=== PATIENT | male | born 1970 | race Caucasian/White ===

== ENCOUNTER 2017-01-20 09:37 | Emergency (ER) | payer OTHER ==
--- NOTE | 2017-01-20 10:15 | DIAGNOSTIC IMAGING REPORT ---
PROCEDURE: XR FINGER - LEFT (fourth finger). INDICATION: TRAUMA/INJURY TECHNIQUE: There are a views. COMPARISON: None. FINDINGS: There is a soft tissue avulsion injury of the distal aspect of the left fourth finger. Osseous structures and joint spaces are normal. No evidence of fracture. IMPRESSION: 1. Soft tissue avulsion type injury of left fourth finger. 2. No evidence of fracture.
--- NOTE | 2017-01-20 11:52 | ED ORDER SUMMARY ---
..... Patient: VIRA AYALA JR OrderSheet [facility] VisitID: [id number] [address] [place] [address] 46y, M Registration Date/Time: 01/20/2017 ORDER SHEET Weight: 101.6 kg (stated) Allergies: No Known Drug Allergy GENERAL ORDERS: Finger Left (ring) Urgent (09:50 01/20/2017 [facility]) (9:54 KWilliams R.N.) Call (Place call to): (Dr Kent) (10:25 01/20/2017 [facility]) (Ack 10:41 LTapper) (11:15 MWinterer R.N.) MEDICATION ORDERS: Tdap IM 0.5 mL (NOW, per protocol) (09:53 01/20/2017 KWilliams R.N. per protocol) (9:54 KWilliams R.N.) Clindamycin PO 300 mg (NOW) (10:26 01/20/2017 [facility]) (Ack 10:33 MWinterer R.N.) (10:37 MWinterer R.N.) Zofran ODT PO 4 mg (NOW) (10:26 01/20/2017 [facility]) (Ack 10:33 MWinterer R.N.) (10:37 MWinterer R.N.) IV FLUIDS: ORDER SHEET NOTES: [Electronically signed by Jia Pat R.N. (12:08 01/20/2017)] [Electronically signed by Noam Randall DO (22:56 01/20/2017)] [Electronically locked/signed by Jia Pat R.N. (12:08 01/20/2017)]
--- NOTE | 2017-01-20 11:52 | ED NURSING NOTES ---
Clinical Report - Nurses [facility] [place] [address] [place] [address] 01/20/2017 9:40 Patient: VIRA AYALA JR TRIAGE Acuity: LEVEL 3. Chief Complaint: INJURY TO LEFT HAND. INJURY TO THE LEFT RING FINGER. Alert. No acute distress. SEPSIS SCREEN: Sepsis Screen. Negative (no infection suspected/documented). [place] COMA SCORE: [place] Coma Scale: 15- eyes open spontaneously (4); best verbal response- oriented x 4 (5); best motor response- obeys commands (6). --09:47 Jia Pat R.N. 09:44 01/20/17. BP: 146/84. HR: 18. RR: 100. O2 saturation: 98% on room air. Temp: 98.7 F (oral). Pain level now: 07/05. --09:47 Jia Pat R.N. Weight: 101.6 kg stated. Height/Length: 71 inches Per Patient. BMI: 31.3. --09:45 Jia Pat R.N. Medications None. --09:45 Jia Pat R.N. Medication/allergy information source: the patient. --09:47 Jia Pat R.N. Allergies No Known Drug Allergy. --09:45 Jia Pat R.N. History Arrived by private vehicle. Historian: patient. Accompanied by spouse. Primary physician (none). This occurred just prior to arrival. Mechanism of injury: a single blow. ( Pt reports a car aternator fell on his finger..). 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 PAST MEDICAL HX: Tetanus status: unknown. SOCIAL HX: Never smoker. Occasional alcohol use. No drug use. FALL RISK ASSESSMENT: Fall risk assessment completed. No fall risk identified. NUTRITIONAL RISK ASSESSMENT: The nutritional risk assessment revealed no deficiencies. FUNCTIONAL ASSESSMENT: Functional assessment: no impairments noted. LEARNING NEEDS ASSESSMENT: The learning needs assessment revealed no barriers. SKIN INTEGRITY ASSESSMENT: Skin integrity risk assessment completed. No skin integrity risk identified. --09:47 Jia Pat R.N. ADDITIONAL SURGERIES: Hernia Repair. Knee Surgery. --09:45 Jia Pat R.N. Interventions ID band on patient. To treatment room. --09:47 Jia Pat R.N. PHYSICAL ASSESSMENT 09:50 01/20/17. Ambulatory to room. GENERAL / NEURO / PSYCH: Oriented X 4. Alert. Appears in no acute distress. EXTREMITIES: Neuro-vascular status intact to the extremity. Tip of left ring finger: partially avulsed nail; tip amputation (partial thickness); partial loss of the nail bed. SKIN: Skin is warm and dry. --09:50 Jia Pat R.N. NURSING PROGRESS NOTES 09:49 01/20/2017 TDAP IM 0.5 mL given. (Lot#: [id number], expiration date: 09/02/2018, Lightout Examiner: sanofi pasteur). Given in the right deltoid. Allergies verified and confirmed 5 rights. Vaccine information statement provided to the patient's family. --09:54 Mienrva Sanchez R.N. 09:50 01/20/17. Two patient identifiers checked. Patient ready for evaluation- chart flagged and ED physician notified. --09:50 Jia Pat R.N. 10:37 01/20/2017 Clindamycin PO 300 mg given. Allergies verified and confirmed 5 rights. --10:37 Jia Pat R.N. 10:37 01/20/2017 Zofran ODT (Ondansetron) PO 4 mg given. Allergies verified and confirmed 5 rights. --10:37 Jia Pat R.N. DISPOSITION / DISCHARGE Departure time: 12:00 Jan 20 2017. Condition at departure: improved and stable. No learning barriers present. Discharge instructions provided and reviewed with the patient and spouse. Reviewed wound care instructions. Reviewed referral to an orthopedic surgeon. Patient and spouse verbalized understanding. Written instructions provided in Uzbek. The patient was discharged by the physician. He was discharged home and accompanied by spouse. He left the Emergency Department ambulatory and via private vehicle. Spouse driving. --12:07 Jia Pat R.N. 12:05 01/20/17. BP: 134/80. HR: 79. RR: 18. O2 saturation: 97% on room air. Temp: 97.8 F (oral). --12:07 Jia Pat R.N. Locked/Released at 01/20/2017 12:08 by Jia Pat R.N.
--- NOTE | 2017-01-20 11:52 | ED CLINICAL REPORT ---
Clinical Report - Physicians/Mid Levels [facility] [address] [place] [address] 01/20/2017 9:40 Patient: VIRA AYALA JR Time Seen: 09:43. Arrived- By private vehicle. Historian- patient. Note: (sent from [facility] for evaluation). HISTORY OF PRESENT ILLNESS Chief Complaint: Injury to the left ring finger. The injury happened today about 2 hours ago. Occurred at home. The patient sustained a crush injury- dropped heavy object on hand. Patient is experiencing moderate pain. Patient denies injury to the head or neck. No other injury. REVIEW OF SYSTEMS The patient sustained a laceration. He has had swelling. No tingling, numbness, weakness or foreign body. PAST HISTORY Negative. See nurses notes. No history of heart disease, lung disease or renal disease. The patient's dominant hand is the right. Tetanus immunization status is unknown. Problems: no known problems. Surgeries: Hernia repair. Knee surgery. Medications: None. Allergies: No Known Drug Allergy. SOCIAL HISTORY Never smoker. Occasional alcohol use. No drug use. Is a local resident. ADDITIONAL NOTES The nursing notes have been reviewed. PHYSICAL EXAM Vital Signs: 01/20/2017 09:44 BP: 146/84. HR: 18. RR: 100. O2 saturation: 98%. Temp: 98.7 F. Pain level now: 8/10. Appearance: Alert. Oriented X3. Anxious. Patient in moderate distress. Head: Head atraumatic. Eyes: Pupils equal, round and reactive to light. Eyes normal inspection. No scleral icterus or pale conjunctivae. Neck: Normal inspection. Neck supple. C-spine non-tender. CVS: Normal heart rate and rhythm. Heart sounds normal. Pulses normal. Respiratory: No respiratory distress. Breath sounds normal. Abdomen: No visible injury. Back: No tenderness. Normal inspection. Skin: (left index finger nail bed laceration). Extremities: Tip of left ring finger: severe tenderness, moderate swelling and subcutaneous 1.0 cm laceration, which involves the nail bed; nail completely avulsed; partial thickness tip amputation present; exposed bone with a visible fracture; partial loss of the nail bed. SEE LACERATION PROCEDURE NOTE #1. No foreign body. No wrist injury. Extremities otherwise negative. Neuro, Vascular and Tendons: Vascular status intact. Sensation intact. Motor intact. Tendon function intact. Neuro: Oriented X 3. No motor deficit. No sensory deficit. LABS, X-RAYS, AND EKG Lt UE Digits X-ray: No fracture. Normal alignment. Soft tissue swelling. Views: AP, lateral and oblique. Technique: good. The X-rays were interpreted contemporaneously by me. Pulse Oximetry: 01/20/2017 09:44 O2 saturation: 98%. (FIO2 - room air). Interpretation: normal. PROGRESS AND PROCEDURES Digital Nerve Block - Finger: Digital nerve block performed on the left ring finger. Web space approach utilized. Landmarks identified. Skin prepped. Total volume of 5 mL 0.5% Marcaine infiltrated via multiple punctures using a 25-gauge needle. Patient cooperative during procedure. No complications encountered. Good anesthesia achieved. Course of Care: Tdap Vaccine 0.5 mL IM given. Zofran 4 mg ODT PO given. Clindamycin 300 mg PO given. Small amount of distal tuft exposed and cannot fold surrounding tissues over this area. Dr. Kent consulted for partial removal of distal tuft to facilitate closure of site. Discussed case with on-call health care provider, (oDnte call placed 10:30 call returned 10:50). Reviewed test results. Agreed upon treatment plan. Health care provider will see patient in ED. Patient/family counseled. Disposition: Discharged. Condition: stable and improved. CLINICAL IMPRESSION Crush injury to the left ring finger. 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 INSTRUCTIONS Apply ice. Elevate affected areas above chest level. Protect wound and keep wound area clean. Change dressing daily. Keep wounds dry. Apply neosporin twice daily. Rest. Do not work with left hand until released. Warnings: COMPLICATIONS: Complications from this condition include: infection. Future problems may include scarring. INFECTION: Watch for signs of infection (increasing heat and redness, pus-like drainage, swelling, or increased pain). Return or see your doctor if these signs occur. SEDATIVE MEDICATION: You were given sedative medication during your visit. Do not drive or operate dangerous machinery. TETANUS: You were given a tetanus shot during your visit. Make a note for future reference. CONTROLLED SUBSTANCE WARNINGS. GENERAL WARNINGS: Return or contact your physician immediately if your condition worsens or changes unexpectedly, if not improving as expected, or if other problems arise. Prescription Medications: Hydrocodone/APAP 5mg/325mg: take 1 to 2 orally every 6 hours as needed for pain. Dispense fifteen (15). No refills. Ibuprofen 600mg tablets: take 1 tablet orally every 8 hours as needed for pain. Dispense thirty (30). No refills. Clindamycin 300 mg: take 1 capsule orally every 6 hours for 3 days. No refill. OTC Medications: Acetaminophen (available over the counter): take according to label instructions. Follow-up: Follow up with an orthopedic surgeon Please go to the orthopedic clinic as directed on sunday . (Electronically signed by Noam Randall DO 01/20/2017 22:56)
--- NOTE | 2017-01-20 11:52 | ED ORDER SUMMARY ---
..... Patient: VIRA AYALA JR OrderSheet [facility] VisitID: [id number] [address] [place] [address] 46y, M Registration Date/Time: 01/20/2017 ORDER SHEET Weight: 101.6 kg (stated) Allergies: No Known Drug Allergy GENERAL ORDERS: Finger Left (ring) Urgent (09:50 01/20/2017 [facility]) (9:54 KWilliams R.N.) Call (Place call to): (Dr Kent) (10:25 01/20/2017 [facility]) (Ack 10:41 LTapper) (11:15 MWinterer R.N.) MEDICATION ORDERS: Tdap IM 0.5 mL (NOW, per protocol) (09:53 01/20/2017 KWilliams R.N. per protocol) (9:54 KWilliams R.N.) Clindamycin PO 300 mg (NOW) (10:26 01/20/2017 [facility]) (Ack 10:33 MWinterer R.N.) (10:37 MWinterer R.N.) Zofran ODT PO 4 mg (NOW) (10:26 01/20/2017 [facility]) (Ack 10:33 MWinterer R.N.) (10:37 MWinterer R.N.) IV FLUIDS: ORDER SHEET NOTES: [Electronically signed by Jia Pat R.N. (12:08 01/20/2017)] [Electronically signed by Noam Randall DO (22:56 01/20/2017)] [Electronically locked/signed by Jia Pat R.N. (12:08 01/20/2017)]
--- NOTE | 2017-01-20 11:52 | ED CLINICAL REPORT ---
Clinical Report - Physicians/Mid Levels [facility] [address] [place] [address] 01/20/2017 9:40 Patient: VIRA AYALA JR Time Seen: 09:43. Arrived- By private vehicle. Historian- patient. Note: (sent from [facility] for evaluation). HISTORY OF PRESENT ILLNESS Chief Complaint: Injury to the left ring finger. The injury happened today about 2 hours ago. Occurred at home. The patient sustained a crush injury- dropped heavy object on hand. Patient is experiencing moderate pain. Patient denies injury to the head or neck. No other injury. REVIEW OF SYSTEMS The patient sustained a laceration. He has had swelling. No tingling, numbness, weakness or foreign body. PAST HISTORY Negative. See nurses notes. No history of heart disease, lung disease or renal disease. The patient's dominant hand is the right. Tetanus immunization status is unknown. Problems: no known problems. Surgeries: Hernia repair. Knee surgery. Medications: None. Allergies: No Known Drug Allergy. SOCIAL HISTORY Never smoker. Occasional alcohol use. No drug use. Is a local resident. ADDITIONAL NOTES The nursing notes have been reviewed. PHYSICAL EXAM Vital Signs: 01/20/2017 09:44 BP: 146/84. HR: 18. RR: 100. O2 saturation: 98%. Temp: 98.7 F. Pain level now: 8/10. Appearance: Alert. Oriented X3. Anxious. Patient in moderate distress. Head: Head atraumatic. Eyes: Pupils equal, round and reactive to light. Eyes normal inspection. No scleral icterus or pale conjunctivae. Neck: Normal inspection. Neck supple. C-spine non-tender. CVS: Normal heart rate and rhythm. Heart sounds normal. Pulses normal. Respiratory: No respiratory distress. Breath sounds normal. Abdomen: No visible injury. Back: No tenderness. Normal inspection. Skin: (left index finger nail bed laceration). Extremities: Tip of left ring finger: severe tenderness, moderate swelling and subcutaneous 1.0 cm laceration, which involves the nail bed; nail completely avulsed; partial thickness tip amputation present; exposed bone with a visible fracture; partial loss of the nail bed. SEE LACERATION PROCEDURE NOTE #1. No foreign body. No wrist injury. Extremities otherwise negative. Neuro, Vascular and Tendons: Vascular status intact. Sensation intact. Motor intact. Tendon function intact. Neuro: Oriented X 3. No motor deficit. No sensory deficit. LABS, X-RAYS, AND EKG Lt UE Digits X-ray: No fracture. Normal alignment. Soft tissue swelling. Views: AP, lateral and oblique. Technique: good. The X-rays were interpreted contemporaneously by me. Pulse Oximetry: 01/20/2017 09:44 O2 saturation: 98%. (FIO2 - room air). Interpretation: normal. PROGRESS AND PROCEDURES Digital Nerve Block - Finger: Digital nerve block performed on the left ring finger. Web space approach utilized. Landmarks identified. Skin prepped. Total volume of 5 mL 0.5% Marcaine infiltrated via multiple punctures using a 25-gauge needle. Patient cooperative during procedure. No complications encountered. Good anesthesia achieved. Course of Care: Tdap Vaccine 0.5 mL IM given. Zofran 4 mg ODT PO given. Clindamycin 300 mg PO given. Small amount of distal tuft exposed and cannot fold surrounding tissues over this area. Dr. Kent consulted for partial removal of distal tuft to facilitate closure of site. Discussed case with on-call health care provider, (Donte call placed 10:30 call returned 10:50). Reviewed test results. Agreed upon treatment plan. Health care provider will see patient in ED. Patient/family counseled. Disposition: Discharged. Condition: stable and improved. CLINICAL IMPRESSION Crush injury to the left ring finger. 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 INSTRUCTIONS Apply ice. Elevate affected areas above chest level. Protect wound and keep wound area clean. Change dressing daily. Keep wounds dry. Apply neosporin twice daily. Rest. Do not work with left hand until released. Warnings: COMPLICATIONS: Complications from this condition include: infection. Future problems may include scarring. INFECTION: Watch for signs of infection (increasing heat and redness, pus-like drainage, swelling, or increased pain). Return or see your doctor if these signs occur. SEDATIVE MEDICATION: You were given sedative medication during your visit. Do not drive or operate dangerous machinery. TETANUS: You were given a tetanus shot during your visit. Make a note for future reference. CONTROLLED SUBSTANCE WARNINGS. GENERAL WARNINGS: Return or contact your physician immediately if your condition worsens or changes unexpectedly, if not improving as expected, or if other problems arise. Prescription Medications: Hydrocodone/APAP 5mg/325mg: take 1 to 2 orally every 6 hours as needed for pain. Dispense fifteen (15). No refills. Ibuprofen 600mg tablets: take 1 tablet orally every 8 hours as needed for pain. Dispense thirty (30). No refills. Clindamycin 300 mg: take 1 capsule orally every 6 hours for 3 days. No refill. OTC Medications: Acetaminophen (available over the counter): take according to label instructions. Follow-up: Follow up with an orthopedic surgeon Please go to the orthopedic clinic as directed on sunday . (Electronically signed by Noam Randall DO 01/20/2017 22:56)
--- NOTE | 2017-01-20 11:52 | ED NURSING NOTES ---
Clinical Report - Nurses [facility] [place] [address] [place] [address] 01/20/2017 9:40 Patient: VIRA AYALA JR TRIAGE Acuity: LEVEL 3. Chief Complaint: INJURY TO LEFT HAND. INJURY TO THE LEFT RING FINGER. Alert. No acute distress. SEPSIS SCREEN: Sepsis Screen. Negative (no infection suspected/documented). [place] COMA SCORE: [place] Coma Scale: 15- eyes open spontaneously (4); best verbal response- oriented x 4 (5); best motor response- obeys commands (6). --09:47 Jia Pat R.N. 09:44 01/20/17. BP: 146/84. HR: 18. RR: 100. O2 saturation: 98% on room air. Temp: 98.7 F (oral). Pain level now: 07/05. --09:47 Jia Pat R.N. Weight: 101.6 kg stated. Height/Length: 71 inches Per Patient. BMI: 31.3. --09:45 Jia Pat R.N. Medications None. --09:45 Jia Pat R.N. Medication/allergy information source: the patient. --09:47 Jia Pat R.N. Allergies No Known Drug Allergy. --09:45 Jia Pat R.N. History Arrived by private vehicle. Historian: patient. Accompanied by spouse. Primary physician (none). This occurred just prior to arrival. Mechanism of injury: a single blow. ( Pt reports a car aternator fell on his finger..). 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 PAST MEDICAL HX: Tetanus status: unknown. SOCIAL HX: Never smoker. Occasional alcohol use. No drug use. FALL RISK ASSESSMENT: Fall risk assessment completed. No fall risk identified. NUTRITIONAL RISK ASSESSMENT: The nutritional risk assessment revealed no deficiencies. FUNCTIONAL ASSESSMENT: Functional assessment: no impairments noted. LEARNING NEEDS ASSESSMENT: The learning needs assessment revealed no barriers. SKIN INTEGRITY ASSESSMENT: Skin integrity risk assessment completed. No skin integrity risk identified. --09:47 Jia Pat R.N. ADDITIONAL SURGERIES: Hernia Repair. Knee Surgery. --09:45 Jia Pat R.N. Interventions ID band on patient. To treatment room. --09:47 Jia Pat R.N. PHYSICAL ASSESSMENT 09:50 01/20/17. Ambulatory to room. GENERAL / NEURO / PSYCH: Oriented X 4. Alert. Appears in no acute distress. EXTREMITIES: Neuro-vascular status intact to the extremity. Tip of left ring finger: partially avulsed nail; tip amputation (partial thickness); partial loss of the nail bed. SKIN: Skin is warm and dry. --09:50 Jia Pat R.N. NURSING PROGRESS NOTES 09:49 01/20/2017 TDAP IM 0.5 mL given. (Lot#: [id number], expiration date: 09/02/2018, Echo Technician: sanofi pasteur). Given in the right deltoid. Allergies verified and confirmed 5 rights. Vaccine information statement provided to the patient's family. --09:54 Minerva Sanchez R.N. 09:50 01/20/17. Two patient identifiers checked. Patient ready for evaluation- chart flagged and ED physician notified. --09:50 Jia Pat R.N. 10:37 01/20/2017 Clindamycin PO 300 mg given. Allergies verified and confirmed 5 rights. --10:37 Jia Pat R.N. 10:37 01/20/2017 Zofran ODT (Ondansetron) PO 4 mg given. Allergies verified and confirmed 5 rights. --10:37 Jia Pat R.N. DISPOSITION / DISCHARGE Departure time: 12:00 Jan 20 2017. Condition at departure: improved and stable. No learning barriers present. Discharge instructions provided and reviewed with the patient and spouse. Reviewed wound care instructions. Reviewed referral to an orthopedic surgeon. Patient and spouse verbalized understanding. Written instructions provided in Ukrainian. The patient was discharged by the physician. He was discharged home and accompanied by spouse. He left the Emergency Department ambulatory and via private vehicle. Spouse driving. --12:07 Jia Pat R.N. 12:05 01/20/17. BP: 134/80. HR: 79. RR: 18. O2 saturation: 97% on room air. Temp: 97.8 F (oral). --12:07 Jia Pat R.N. Locked/Released at 01/20/2017 12:08 by Jia Pat R.N.
--- NOTE | 2017-01-20 12:57 | CONSULTATION REPORT ---
DATE OF CONSULTATION: 01/20/2017 HISTORY OF PRESENT ILLNESS: The patient was a 46-year-old gentleman who was working on his car earlier today and the alternator slipped in the bracket causing a partial amputation of the tip of his ring finger on the left. He comes to the emergency department at [facility] for care. On physical examination, he has an amputation of the distal 2 or 3 mm of the tuft exposing the tip of the distal phalanx and avulsing approximately 50% of the bed of the nail. The finger had been examined under digital block by the emergency room doctor and the block was still intact when I examined the patient. There was no foreign body and the wound was clean. I discussed with the patient treatment by shortening the distal part of the distal phalanx and closing the tuft over the tip and the patient understood and agreed. He understands the risks of infection and chronic pain, which may require more surgery. The patient agreed. The finger was prepped and draped in the usual fashion. A rongeur was used to remove approximately 3 mm of the distal portion of the phalanx. The volar tuft was then closed over the distal part of the distal phalanx and held in place with 4-0 nylon interrupted sutures. Sterile dressing was applied. The patient tolerated the procedure well. He is going to follow up in the office in 4 days. He is going to take antibiotic during that time and will be given a prescription for pain medicine.
--- NOTE | 2017-01-20 22:57 | ED MED RECONCILIATION SUMMARY ---
Patient: JAMIE VIRA ENRIQUE SIEGEL Medication Reconciliation Report [facility] VisitID: [id number] [address] [place] [address] 46y, M Registration Date/Time: 01/20/2017 Weight: 101.6 kg Height/Length: 71 in. BMI: 31.3 ALLERGIES: No Known Drug Allergy The patient's Home Medications are listed below: NONE. The source(s) of the original Home Medication information: patient The following Medications were given to the patient in the Emergency Department: TDAP [IM] IM 0.5 mL, administered: 01/20/2017 9:49:00 AM Clindamycin [PO] PO 300 mg, administered: 01/20/2017 10:37:00 AM Zofran ODT [PO] PO 4 mg, administered: 01/20/2017 10:37:00 AM The following Medications were prescribed to the patient: Acetaminophen (available over the counter): take according to label instructions. -- Noam Randall DO Hydrocodone/APAP 5mg/325mg: take 1 to 2 orally every 6 hours as needed for pain. Dispense fifteen (15). No refills. -- Noma Randall DO Ibuprofen 600mg tablets: take 1 tablet orally every 8 hours as needed for pain. Dispense thirty (30). No refills. -- Noam Randall DO Clindamycin 300 mg: take 1 capsule orally every 6 hours for 3 days. No refill. -- Noam Randall DO
--- NOTE | 2017-01-20 22:57 | ED MAR SUMMARY ---
..... Medication Administration Record [facility] [address] [place] [address] Patient: VIRA AYALA Visit ID: [id number] 46y, M Weight: 101.6 kg Height/Length: 71 in BMI: 31.3 ALLERGIES: No Known Drug Allergy Given 09:49 01/20/2017 Minerva Sanchez R.N. Medication Administered: TDAP [IM], Dose: 0.5 mL IM. Medication Ordered: Tdap IM 0.5 mL (NOW, per protocol). Given 10:37 01/20/2017 Jia Pat R.N. Medication Administered: CLINDAMYCIN [PO], Dose: 300 mg PO. Medication Ordered: Clindamycin PO 300 mg (NOW). Given :37 01/20/2017 Jia Pat RDgNDg Medication Administered: ZOFRAN ODT [PO] (ONDANSETRON), Dose: 4 mg PO. Medication Ordered: Zofran ODT PO 4 mg (NOW).
--- NOTE | 2017-01-20 22:57 | ED MAR SUMMARY ---
..... Medication Administration Record [facility] [address] [place] [address] Patient: VIRA AYALA Visit ID: [id number] 46y, M Weight: 101.6 kg Height/Length: 71 in BMI: 31.3 ALLERGIES: No Known Drug Allergy Given 09:49 01/20/2017 Minerva Sanchez R.N. Medication Administered: TDAP [IM], Dose: 0.5 mL IM. Medication Ordered: Tdap IM 0.5 mL (NOW, per protocol). Given 10:37 01/20/2017 Jia Pat R.N. Medication Administered: CLINDAMYCIN [PO], Dose: 300 mg PO. Medication Ordered: Clindamycin PO 300 mg (NOW). Given :37 01/20/2017 Jia Pat RDgNDg Medication Administered: ZOFRAN ODT [PO] (ONDANSETRON), Dose: 4 mg PO. Medication Ordered: Zofran ODT PO 4 mg (NOW).
--- NOTE | 2017-01-20 22:57 | ED MED RECONCILIATION SUMMARY ---
Patient: JAMIE VIRA ENRIQUE SIEGEL Medication Reconciliation Report [facility] VisitID: [id number] [address] [place] [address] 46y, M Registration Date/Time: 01/20/2017 Weight: 101.6 kg Height/Length: 71 in. BMI: 31.3 ALLERGIES: No Known Drug Allergy The patient's Home Medications are listed below: NONE. The source(s) of the original Home Medication information: patient The following Medications were given to the patient in the Emergency Department: TDAP [IM] IM 0.5 mL, administered: 01/20/2017 9:49:00 AM Clindamycin [PO] PO 300 mg, administered: 01/20/2017 10:37:00 AM Zofran ODT [PO] PO 4 mg, administered: 01/20/2017 10:37:00 AM The following Medications were prescribed to the patient: Acetaminophen (available over the counter): take according to label instructions. -- Noam Randall DO Hydrocodone/APAP 5mg/325mg: take 1 to 2 orally every 6 hours as needed for pain. Dispense fifteen (15). No refills. -- Noam Randall DO Ibuprofen 600mg tablets: take 1 tablet orally every 8 hours as needed for pain. Dispense thirty (30). No refills. -- Noam Randall DO Clindamycin 300 mg: take 1 capsule orally every 6 hours for 3 days. No refill. -- Noam Randall DO
--- NOTE | 2017-01-20 22:57 | ED DISCHARGE INSTRUCTIONS ---
Patient: VIRA AYALA JR General Instructions [facility] VisitID: [id number] [place] [address] 46y, M Registration Date/Time: 01/20/2017 Crush injury to the left ring finger. 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 INSTRUCTIONS Apply ice. Elevate affected areas above chest level. Protect wound and keep wound area clean. Change dressing daily. Keep wounds dry. Apply neosporin twice daily. Rest. Do not work with left hand until released. Warnings: COMPLICATIONS: Complications from this condition include: infection. Future problems may include scarring. INFECTION: Watch for signs of infection (increasing heat and redness, pus-like drainage, swelling, or increased pain). Return or see your doctor if these signs occur. SEDATIVE MEDICATION: You were given sedative medication during your visit. Do not drive or operate dangerous machinery. TETANUS: You were given a tetanus shot during your visit. Make a note for future reference. CONTROLLED SUBSTANCE WARNINGS. GENERAL WARNINGS: Return or contact your physician immediately if your condition worsens or changes unexpectedly, if not improving as expected, or if other problems arise. Prescription Medications: Hydrocodone/APAP 5mg/325mg: take 1 to 2 orally every 6 hours as needed for pain. Dispense fifteen (15). No refills. Ibuprofen 600mg tablets: take 1 tablet orally every 8 hours as needed for pain. Dispense thirty (30). No refills. Clindamycin 300 mg: take 1 capsule orally every 6 hours for 3 days. No refill. OTC Medications: Acetaminophen (available over the counter): take according to label instructions. Follow-up: Follow up with an orthopedic surgeon Please go to the orthopedic clinic as directed on sunday . ADDITIONAL INFORMATION Finger Tip Amputation [Open Treatment] You have cut off the tip of your finger. When this happens there is skin missing and the wound cannot be fully covered by sewing the edges together. For your type of injury, the best result can be obtained by allowing the wound to heal on its own by growing new skin from the sides. Depending on the size of the wound, it will take from 26 weeks for the wound to fill in with new skin. Once healed, you should have normal feeling in the new skin. Antibiotics may be used to prevent infection if the wound is dirty or if the bone or tendons were involved. Home care The following guidelines will help you care for your wound at home: Keep the injured hand elevated during the first two days to reduce swelling and pain. Keep the bandage clean and dry. If the dressing stays on longer than two days, it will stick to the wound. Unless, you have a doctor appointment in two days, change the bandage as described below. If you were advised to change your own dressing, follow these directions regardingbandage removal and replacement: If the dressing sticks to the wound, you can loosen it by soaking the dressing under warm running water. Once the dressing is removed, clean the wound with soap and water. Apply an antibiotic ointment. Bulky gauze dressing should be used for the first two days for additional protection from injury. Cover with a nonstick gauze pad or wrap with bandage gauze. After that, if your wound is small and not too painful, a large stretch bandage is okay to use. You may shower as usual, but keep your dressing dry by using a small plastic trash bag over the hand, rubber-banded at the wrist. Do not soak your hand in water (no baths or swimming) until approved by your doctor. If antibiotics were prescribed, take them all until they are gone. You may use [id number] pain medication unless another pain medicine was prescribed. If you have chronic liver or kidney disease or ever had a stomach ulcer or GI bleeding, talk with your doctor before using these medicines. If a numbing medicine was used on your finger it will wear off in 16 hours. Begin taking your pain medicinebeforethis happens, since there may be throbbing or pain during the first few days. Follow-up care An infection may sometimes occur even though proper treatment was given. If no appointment was given for a wound check, and if your doctor did not advise against it, you may check the wound yourself at home in two days by carefully removing the dressing as described above. If stitches were used, they should be removed within 714 days, as advised by your doctor. [Note: If X-rays were taken, a radiologist will review them and you will be notified of any new findings that may affect your care.] When to seek medical care Get prompt medical attention if any of the following occur: Increasing pain in the wound Redness or swelling around the wound Pus or fluid coming from the wound or foul odor from a cast or splint If sutures or ishan come apart or fall out before your next appointment Fever of 100.4F (38C) or higher, or as directed by your health care provider Bleeding not controlled by direct pressure Nail Injury (Complete Finger/Toe Nail Plate Avulsion) Some injuries to a finger or toe can cause loss of the nail. Sometimes there is a cutin the nail bed or a fracture of the bone under the nail. In almost all cases, the nail will grow back from under the cuticle. This takes a few weeks to start and is complete in about 46 months for a fingernail and 12 months for a toenail. If the nail bed was damaged, the nail may grow back with a rough or irregular shape. Sometimes the nail may not regrow at all. Home care The following guidelines will help you care for your wound at home: Keep the injured part raised to reduce pain and swelling. This is very important during the first 48 hours. Make an ice pack (ice cubes in a plastic bag, wrapped in a towel) and apply for 20 minutes every two hours during the first day, then 34 times a day to reduce swelling and pain until the swelling goes down. You may use acetaminophen or ibuprofen to control pain, unless another pain medicine was prescribed.If you have chronic liver or kidney disease or ever had a stomach ulcer or GI bleeding, talk with your doctor before using these medicines. The nail bed (tissue under the nail) is moist, soft and sensitive. This needs to be protected from injury for the first 710 days until it dries out and becomes hard. Keep it covered with a dressing or an adhesive bandage until that time. When a dressing is placed on an exposed nail bed, it may stick and be hard to remove if left in place more than 24 hours. Therefore, unless you were told otherwise, change dressings every 24 hours. If necessary, soak the dressing off while holding your finger or toe under warm, running water. Apply a layer of antibiotic ointment before putting on the new dressing or bandage. This will help keep it from sticking. If an X-ray was taken and a fracture was found, it will take about four weeks for this to heal. The injured part should be protected with a splint or tape while it is healing. If you were prescribed antibiotics to prevent infection, take them as directed until they are all gone. Follow-up care Follow up with your doctor or this facility as directed. Note:If X-rays were taken, they will be reviewed by a radiologist. You will be notified of any new findings that may affect your care. When to seek medical care Get prompt medical attention if any of the following occur: Pain or swelling increases Redness around the nail Pus (creamy white or yellow fluid) draining from the nail Fever of 100.4F (38C) or higher, or as directed by your health care provider Diphtheria Toxoid Adsorbed, Pertussis Vaccine, Acellular (Adsorbed), Tetanus Toxoid, Adsorbed Suspension for injection What is this medicine? DIPHTHERIA and TETANUS TOXOIDS; PERTUSSIS VACCINE (dif THEER ee uh and TET n us TOK soids; per JUAN FRANCISCO lee SEEN) is used to prevent diphtheria, tetanus, and pertussis infections. How should I use this medicine? This vaccine is for injection into a muscle. It is given by a health hospice care transitions coordinator. A copy of Vaccine Information Statements will be given before each vaccination. Read this sheet carefully each time. The sheet may change frequently. Talk to your card dealer regarding the use of this vaccine in children. While the DTP vaccine may be given to children ages 6 weeks to 7 years and the Tdap vaccine may be given to children at least 10 years old, precautions do apply. What side effects may I notice from receiving this medicine? Side effects that you should report to your doctor or health hospice care transitions coordinator as soon as possible: allergic reactions like skin rash, itching or hives, swelling of the face, lips, or tongue breathing problems fever of 103 degrees F or more flu-like symptoms inconsolable crying infection pain, tingling, numbness in the hands or feet seizures swelling of arm or leg that was injected unusually weak or tired Side effects that usually do not require immediate medical attention (report these side effects to your doctor or health hospice care transitions coordinator if they continue or are bothersome): fussy, irritable loss of appetite fever of 102 degrees F or less pain, tenderness, redness, swelling, or a 'knot' at site where injected vomiting What may interact with this medicine? immune globulin medicines that suppress your immune function like adalimumab, anakinra, infliximab medicines to treat cancer medicines that treat or prevent blood clots like warfarin, enoxaparin, and dalteparin steroid medicines like prednisone or cortisone What if I miss a dose? It is important not to miss your dose. Call your doctor or health hospice care transitions coordinator if you are unable to keep an appointment. Where should I keep my medicine? This drug is given in a hospital or clinic and will not be stored at home. What should I tell my health care provider before I take this medicine? They need to know if you have any of these conditions: blood disorders like hemophilia fever or infection immune system problems neurologic disease seizures an unusual or allergic reaction to vaccines, thimerosal, latex, other medicines, foods, dyes, or preservatives or trying to get breast-feeding What should I watch for while using this medicine? See your health care provider for all shots of this vaccine as directed. To have protection from infection, you must have 3 shots of this vaccine plus boosters as needed. Tell your doctor right away if you have any serious or unusual side effects after getting this vaccine. Hydrocodone Bitartrate, Acetaminophen Oral tablet What is this medicine? ACETAMINOPHEN; HYDROCODONE (a set a CONSTANTIN que fen; faustino droe KOE done) is a pain reliever. It is used to treat mild to moderate pain. How should I use this medicine? Take this medicine by mouth. Swallow it with a full glass of water. Follow the directions on the prescription label. If the medicine upsets your stomach, take the medicine with food or milk. Do not take more than you are told to take. Talk to your card dealer regarding the use of this medicine in children. This medicine is not approved for use in children. What side effects may I notice from receiving this medicine? Side effects that you should report to your doctor or health hospice care transitions coordinator as soon as possible: allergic reactions like skin rash, itching or hives, swelling of the face, lips, or tongue breathing problems confusion feeling faint or lightheaded, falls stomach pain yellowing of the eyes or skin Side effects that usually do not require medical attention (report to your doctor or health hospice care transitions coordinator if they continue or are bothersome): nausea, vomiting stomach upset What may interact with this medicine? alcohol antihistamines isoniazid medicines for depression, anxiety, or psychotic disturbances medicines for sleep muscle relaxants naltrexone narcotic medicines (opiates) for pain phenobarbital ritonavir tramadol What if I miss a dose? If you miss a dose, take it as soon as you can. If it is almost time for your next dose, take only that dose. Do not take double or extra doses. Where should I keep my medicine? Keep out of the reach of children. This medicine can be abused. Keep your medicine in a safe place to protect it from theft. Do not share this medicine with anyone. Selling or giving away this medicine is dangerous and against the law. Store at room temperature between 15 and 30 degrees C (59 and 86 degrees F). Protect from light. Keep container tightly closed. Throw away any unused medicine after the expiration date. Discard unused medicine and used packaging carefully. Pets and children can be harmed if they find used or lost packages. What should I tell my health care provider before I take this medicine? They need to know if you have any of these conditions: brain tumor Crohn's disease, inflammatory bowel disease, or ulcerative colitis drink more than 3 alcohol-containing drinks per day drug abuse or addiction head injury heart or circulation problems kidney disease or problems going to the bathroom liver disease lung disease, asthma, or breathing problems an unusual or allergic reaction to acetaminophen, hydrocodone, other opioid analgesics, other medicines, foods, dyes, or preservatives or trying to get breast-feeding What should I watch for while using this medicine? Tell your doctor or health hospice care transitions coordinator if your pain does not go away, if it gets worse, or if you have new or a different type of pain. You may develop tolerance to the medicine. Tolerance means that you will need a higher dose of the medicine for pain relief. Tolerance is normal and is expected if you take the medicine for a long time. Do not suddenly stop taking your medicine because you may develop a severe reaction. Your body becomes used to the medicine. This does NOT mean you are addicted. Addiction is a behavior related to getting and using a drug for a non-medical reason. If you have pain, you have a medical reason to take pain medicine. Your doctor will tell you how much medicine to take. If your doctor wants you to stop the medicine, the dose will be slowly lowered over time to avoid any side effects. You may get drowsy or dizzy when you first start taking the medicine or change doses. Do not drive, use machinery, or do anything that may be dangerous until you know how the medicine affects you. Stand or sit up slowly. There are different types of narcotic medicines (opiates) for pain. If you take more than one type at the same time, you may have more side effects. Give your health care provider a list of all medicines you use. Your doctor will tell you how much medicine to take. Do not take more medicine than directed. Call emergency for help if you have problems breathing. The medicine will cause constipation. Try to have a bowel movement at least every 2 to 3 days. If you do not have a bowel movement for 3 days, call your doctor or health hospice care transitions coordinator. Too much acetaminophen can be very dangerous. Do not take Tylenol (acetaminophen) or medicines that contain acetaminophen with this medicine. Many non-prescription medicines contain acetaminophen. Always read the labels carefully. Ibuprofen Oral tablet What is this medicine? IBUPROFEN (eye BYOO proe fen) is a non-steroidal anti-inflammatory drug (NSAID). It is used for dental pain, fever, headaches or migraines, osteoarthritis, rheumatoid arthritis, or painful monthly periods. It can also relieve minor aches and pains caused by a cold, flu, or sore throat. How should I use this medicine? Take this medicine by mouth with a glass of water. Follow the directions on the prescription label. Take this medicine with food if your stomach gets upset. Try to not lie down for at least 10 minutes after you take the medicine. Take your medicine at regular intervals. Do not take your medicine more often than directed. A special MedGuide will be given to you by the pharmacist with each prescription and refill. Be sure to read this information carefully each time. Talk to your card dealer regarding the use of this medicine in children. Special care may be needed. What side effects may I notice from receiving this medicine? Side effects that you should report to your doctor or health hospice care transitions coordinator as soon as possible: allergic reactions like skin rash, itching or hives, swelling of the face, lips, or tongue black or bloody stools, blood in the urine or in vomit breathing problems changes in vision chest pain general ill feeling or flu-like symptoms nausea or vomiting redness, blistering, peeling or loosening of the skin, including inside the mouth slurred speech or weakness on one side of the body stomach pain unexplained weight gain or swelling unusually weak or tired yellowing of eyes or skin Side effects that usually do not require medical attention (report to your doctor or health hospice care transitions coordinator if they continue or are bothersome): constipation or diarrhea dizziness gas or heartburn stomach upset What may interact with this medicine? Do not take this medicine with any of the following medications: cidofovir ketorolac methotrexate pemetrexed This medicine may also interact with the following medications: alcohol aspirin diuretics lithium other drugs for inflammation like prednisone warfarin What if I miss a dose? If you miss a dose, take it as soon as you can. If it is almost time for your next dose, take only that dose. Do not take double or extra doses. Where should I keep my medicine? Keep out of the reach of children. Store at room temperature between 15 and 30 degrees C (59 and 86 degrees F). Keep container tightly closed. Throw away any unused medicine after the expiration date. What should I tell my health care provider before I take this medicine? They need to know if you have any of these conditions: asthma cigarette smoker drink more than 3 alcohol containing drinks a day heart disease or circulation problems such as heart failure or leg edema (fluid retention) high blood pressure kidney disease liver disease stomach bleeding or ulcers an unusual or allergic reaction to ibuprofen, aspirin, other NSAIDS, other medicines, foods, dyes, or preservatives or trying to get breast-feeding What should I watch for while using this medicine? Tell your doctor or healthcare professional if your symptoms do not start to get better or if they get worse. This medicine does not prevent heart attack or stroke. In fact, this medicine may increase the chance of a heart attack or stroke. The chance may increase with longer use of this medicine and in people who have heart disease. If you take aspirin to prevent heart attack or stroke, talk with your doctor or health hospice care transitions coordinator. Do not take other medicines that contain aspirin, ibuprofen, or naproxen with this medicine. Side effects such as stomach upset, nausea, or ulcers may be more likely to occur. Many medicines available without a prescription should not be taken with this medicine. This medicine can cause ulcers and bleeding in the stomach and intestines at any time during treatment. Ulcers and bleeding can happen without warning symptoms and can cause . To reduce your risk, do not smoke cigarettes or drink alcohol while you are taking this medicine. You may get drowsy or dizzy. Do not drive, use machinery, or do anything that needs mental alertness until you know how this medicine affects you. Do not stand or sit up quickly, especially if you are an older patient. This reduces the risk of dizzy or fainting spells. This medicine can cause you to bleed more easily. Try to avoid damage to your teeth and gums when you brush or floss your teeth. Clindamycin Hydrochloride Oral capsule What is this medicine? CLINDAMYCIN (RANDALL Ferraro) is a lincosamide antibiotic. It is used to treat certain kinds of bacterial infections. It will not work for colds, flu, or other viral infections. How should I use this medicine? Take this medicine by mouth with a full glass of water. Follow the directions on the prescription label. You can take this medicine with food or on an empty stomach. If the medicine upsets your stomach, take it with food. Take your medicine at regular intervals. Do not take your medicine more often than directed. Take all of your medicine as directed even if you think your are better. Do not skip doses or stop your medicine early. Talk to your card dealer regarding the use of this medicine in children. Special care may be needed. What side effects may I notice from receiving this medicine? Side effects that you should report to your doctor or health hospice care transitions coordinator as soon as possible: allergic reactions like skin rash, itching or hives, swelling of the face, lips, or tongue dark urine pain on swallowing redness, blistering, peeling or loosening of the skin, including inside the mouth unusual bleeding or bruising unusually weak or tired yellowing of eyes or skin Side effects that usually do not require medical attention (report to your doctor or health hospice care transitions coordinator if they continue or are bothersome): diarrhea itching in the rectal or genital area joint pain nausea, vomiting stomach pain What may interact with this medicine? chloramphenicol erythromycin kaolin products What if I miss a dose? If you miss a dose, take it as soon as you can. If it is almost time for your next dose, take only that dose. Do not take double or extra doses. Where should I keep my medicine? Keep out of the reach of children. Store at room temperature between 20 and 25 degrees C (68 and 77 degrees F). Throw away any unused medicine after the expiration date. What should I tell my health care provider before I take this medicine? They need to know if you have any of these conditions: kidney disease liver disease stomach problems like colitis an unusual or allergic reaction to clindamycin, lincomycin, or other medicines, foods, dyes like tartrazine or preservatives or trying to get breast-feeding What should I watch for while using this medicine? Tell your doctor or healthcare professional if your symptoms do not start to get better or if they get worse. Do not treat diarrhea with over the counter products. Contact your doctor if you have diarrhea that lasts more than 2 days or if it is severe and watery. Acetaminophen Oral tablet What is this medicine? ACETAMINOPHEN (a set a CONSTANTIN que fen) is a pain reliever. It is used to treat mild pain and fever. How should I use this medicine? Take this medicine by mouth with a glass of water. Follow the directions on the package or prescription label. Take your medicine at regular intervals. Do not take your medicine more often than directed. Talk to your card dealer regarding the use of this medicine in children. While this drug may be prescribed for children as young as 6 years of age for selected conditions, precautions do apply. What side effects may I notice from receiving this medicine? Side effects that you should report to your doctor or health hospice care transitions coordinator as soon as possible: allergic reactions like skin rash, itching or hives, swelling of the face, lips, or tongue breathing problems fever or sore throat redness, blistering, peeling or loosening of the skin, including inside the mouth trouble passing urine or change in the amount of urine unusual bleeding or bruising unusually weak or tired yellowing of the eyes or skin Side effects that usually do not require medical attention (report to your doctor or health hospice care transitions coordinator if they continue or are bothersome): headache nausea, stomach upset What may interact with this medicine? alcohol imatinib isoniazid other medicines with acetaminophen What if I miss a dose? If you miss a dose, take it as soon as you can. If it is almost time for your next dose, take only that dose. Do not take double or extra doses. Where should I keep my medicine? Keep out of reach of children. Store at room temperature between 20 and 25 degrees C (68 and 77 degrees F). Protect from moisture and heat. Throw away any unused medicine after the expiration date. What should I tell my health care provider before I take this medicine? They need to know if you have any of these conditions: if you frequently drink alcohol containing drinks liver disease an unusual or allergic reaction to acetaminophen, other medicines, foods, dyes or preservatives or trying to get breast-feeding What should I watch for while using this medicine? Tell your doctor or health hospice care transitions coordinator if the pain lasts more than 10 days (5 days for children), if it gets worse, or if there is a new or different kind of pain. Also, check with your doctor if a fever lasts for more than 3 days. Do not take other medicines that contain acetaminophen with this medicine. Always read labels carefully. If you have questions, ask your doctor or pharmacist. If you take too much acetaminophen get medical help right away. Too much acetaminophen can be very dangerous and cause liver damage. Even if you do not have symptoms, it is important to get help right away. You have been given the following additional information: Finger Tip Amputation, Open Treatment Nail Avulsion, Complete Diphtheria Toxoid Adsorbed, Pertussis Vaccine, Acellular (Adsorbed), Tetanus Toxoid, Adsorbed Suspension for injection Hydrocodone Bitartrate, Acetaminophen Oral tablet Ibuprofen Oral tablet Clindamycin Hydrochloride Oral capsule Acetaminophen Oral tablet Rest. Do not work with left hand until released. (Electronically signed by Noam Randall DO 01/20/2017 22:56)
== END 2017-01-20 12:00 | disposition home or self-care (01) ==
LOC: ED SRH 09:37
DX: S67.195A Crushing injury of left ring finger, initial encounter (principal); S68.125A Partial traumatic metacarpophalangeal amputation of left ring finger, initial encounter; W20.8XXA Other cause of strike by thrown, projected or falling object, initial encounter; Y93.9 Activity, unspecified; Y92.009 Unspecified place in unspecified non-institutional (private) residence as the place of occurrence of the external cause; Y99.9 Unspecified external cause status; Z23 Encounter for immunization